=== PATIENT | male | born 1970 | race Two or more races ===

== ENCOUNTER 2024-11-22 19:15 | Inpatient (IN) | payer OTHER ==
[~2024-11-22] VITALS: Ht 172.7 cm; Wt 99.8 kg
[2024-11-22] MEDS ORDERED: CIPRO500 MG PO (20:02)
[2024-11-22] MEDS ORDERED: PANTOPRAZOLE SO40 MG PO (20:02)
[2024-11-22] MEDS ORDERED: METRONIDAZOLE500 MG PO (20:02)
[2024-11-22] MEDS ORDERED: ABATINEX680 MG PO (20:03)
[2024-11-22] MEDS ORDERED: PIPERACILLIN/TAZOBACTAM SODIUM 3.375 GM in 0.9 % SODIUM CHLORIDE 100 ML IV SCH (20:25)
[2024-11-22] MEDS ORDERED: FAMOTIDINE/PF 20 MG in 0.9 % SODIUM CHLORIDE 8 ML IV PUSH STA (20:27)
[2024-11-22] MEDS ORDERED: 0.9 % SODIUM CHLORIDE 1,000 ML IV SCH (20:30)
[2024-11-22] MEDS ORDERED: MORPHINE SULFATE 4 MG/ML VIAL IV PRN (20:30)
[2024-11-22 21:04] LABS: BASO % 0.6 % (0.1-1.2); EOS # 0.13 (0.04-0.54); EOS % 2.1 % (0.7-7.0); LYMPH # 2.15 (1.18-3.74); LYMPH % 34.8 % (19.3-53.1); MEAN PLATELET VOLUME 10.40 fl (9.4-12.4); MONO # 0.46 (0.24-0.82); MONO % 7.4 % (4.7-12.5); NEUT # 3.39 (1.56-6.13); NEUT % 54.9 % (34.0-71.1); RED CELL DISTRIBUTION WIDTH 11.9 % (11.6-14.4)
[2024-11-22 21:23] LABS: INR 1.1
[2024-11-22 21:31] LABS: ALT/SGPT 31.0 U/L (12-78); AST/SGOT 15.0 U/L (15-37); BILIRUBIN TOTAL 0.48 mg/dL (0.3-1.2); BUN CREA RATIO 11.0 (7.0-25.0); CREATININE SERUM 1.26 mg/dL (0.70-1.30); GFR 60.33; GLOBULINA 3.9 G/DL (2.4-3.5); GLUCOSE FASTING 81.0 mg/dL (65-100); OSMOLALITY SERUM 279.0 MOSM/KG (275-295)
[2024-11-22 21:52] LABS: URINE APPEARANCE Clear; URINE BILIRRUBIN Negative (NEGATIVE); URINE BLOOD Negative; URINE COLOR Dark Yellow; URINE GLUCOSE Negative (NEGATIVE); URINE KETONE Trace (NEGATIVE); URINE LEUKOCYTE Trace; URINE NITRATE Negative; URINE PROTEIN 30 (NEGATIVE); URINE UROBILINOGEN 0.2 E.U./dl
[2024-11-22 21:56] LABS: URINE BACTERIA 68.3 uL (0.0-1933); URINE EPITHELIAL CELLS 3.0 uL (0.0-38.8); URINE RBC 2.9 uL (0.0-20.8); URINE WBC 4.0 uL (0.0-23.2)
[2024-11-22 21:58] LABS: URINE CAST 0.29 uL (0.0-1.40)
[2024-11-23] MEDS ORDERED: FAMOTIDINE/PF 20 MG in 0.9 % SODIUM CHLORIDE 8 ML IV PUSH SCH ×2 (00:35→21:00)
[2024-11-23] MEDS ORDERED: CLONAZEPAM 1 MG TABLET PO SCH (00:35)
[2024-11-23] MEDS ORDERED: MORPHINE SULFATE 4 MG/ML CARTRIDGE IV PRN (00:45)
[2024-11-23] MEDS ORDERED: HYOSCYAMINE SULFATE 0.125 MG TAB.SUBL PO ONE (00:45)
[2024-11-23] MEDS ORDERED: ONDANSETRON HCL 4 MG in 0.9 % SODIUM CHLORIDE 50 ML IV PRN (00:45)
[2024-11-23] MEDS ORDERED: ACETAMINOPHEN 500 MG GEL..CAP PO PRN (00:45)
[2024-11-23] MEDS ORDERED: 0.9 % SODIUM CHLORIDE 1,000 ML IV SCH (00:45)
[2024-11-23 04:00] VITALS: BP 121/71; O2SAT 96
[2024-11-23 04:20] LABS: INR 1.09
[2024-11-23 09:35] VITALS: BP 132/75
[2024-11-23 17:25] VITALS: BP 96/57; O2SAT 98
[2024-11-24 01:22] VITALS: BP 98/60; O2SAT 97
[2024-11-24 08:55] VITALS: BP 110/72
[2024-11-24 17:47] VITALS: BP 139/74
[2024-11-24] MEDS ORDERED: CLONAZEPAM 1 MG TABLET PO SCH (21:00)
[2024-11-25 01:03] VITALS: BP 111/68
[2024-11-25 09:09] VITALS: BP 110/71
[2024-11-25] MEDS ORDERED: DIATRIZOATE MEGLUMINE, SODIUM 30 ML BOTTLE PO NR (10:45)
[2024-11-25 17:45] VITALS: BP 137/91
[2024-11-26 00:57] VITALS: BP 98/59
[2024-11-26 09:30] VITALS: BP 119/68
[2024-11-26] MEDS ORDERED: fentaNYL CITRATE 50 MCG/ML AMPUL IV PUSH ONE ×3 (17:30→21:30)
[2024-11-26] MEDS ORDERED: MIDAZOLAM HCL 2 MG/2 ML VIAL IV PUSH ONE (17:30)
[2024-11-26 22:23] VITALS: BP 132/82; O2SAT 100
[2024-11-27 02:03] VITALS: BP 121/81; O2SAT 99
[2024-11-27 08:23] VITALS: BP 108/70; O2SAT 99
[2024-11-27] MEDS ORDERED: FLUCONAZOLE IN NACL,ISO-OSM 400 MG/200 ML PIGGYBAG IV NR (14:15)
[2024-11-27 16:45] VITALS: BP 101/65
[2024-11-28 02:30] VITALS: BP 136/79; O2SAT 98
[2024-11-28 05:08] LABS: BASO % 0.6 % (0.1-1.2); EOS # 0.29 (0.04-0.54); EOS % 4.7 % (0.7-7.0); LYMPH # 2.32 (1.18-3.74); LYMPH % 37.5 % (19.3-53.1); MEAN PLATELET VOLUME 10.60 fl (9.4-12.4); MONO # 0.44 (0.24-0.82); MONO % 7.1 % (4.7-12.5); NEUT # 3.07 (1.56-6.13); NEUT % 49.8 % (34.0-71.1); RED CELL DISTRIBUTION WIDTH 11.9 % (11.6-14.4)
[2024-11-28 05:27] LABS: BUN CREA RATIO 5.0 (7.0-25.0); CREATININE SERUM 1.13 mg/dL (0.70-1.30); GFR 68.14; GLUCOSE FASTING 80.0 mg/dL (65-100); OSMOLALITY SERUM 285.0 MOSM/KG (275-295)
[2024-11-28 08:43] VITALS: BP 110/63; O2SAT 99
[2024-11-28] MEDS ORDERED: FLUCONAZOLE IN NACL,ISO-OSM 100 ML IV SCH (09:00)
[2024-11-28 16:34] VITALS: BP 134/70
[2024-11-29 00:37] VITALS: BP 131/76; O2SAT 97
[2024-11-29 07:52] VITALS: BP 110/68
[2024-11-29] MEDS ORDERED: DIATRIZOATE MEGLUMINE, SODIUM 30 ML BOTTLE PO NR (10:30)
[2024-11-29] MEDS ORDERED: PIPERACILLIN/TAZOBACTAM SODIUM 3.375 GM VIAL IV ONE ×2 (16:19→16:20)
[2024-11-29 16:54] VITALS: BP 162/86
== END 2024-11-29 21:00 | disposition home or self-care (01) | DRG 392 ==
LOC: ER 19:15 → MEDI 11-23 00:36
PROVIDERS: General Practice; ADMIT Student in an Organized Health Care Education/Training Program; ATTEND Student in an Organized Health Care Education/Training Program
PROC: BW21YZZ Computerized Tomography (CT Scan) of Abdomen and Pelvis using Other Contrast (ICD-10-PCS; principal; 2024-11-23)
PROC: BW21YZZ Computerized Tomography (CT Scan) of Abdomen and Pelvis using Other Contrast (ICD-10-PCS; 2024-11-25)
PROC: 0W9F30Z Drainage of Abdominal Wall with Drainage Device, Percutaneous Approach (ICD-10-PCS; 2024-11-26)
PROC: BW21YZZ Computerized Tomography (CT Scan) of Abdomen and Pelvis using Other Contrast (ICD-10-PCS; 2024-11-29)
DX: K57.40 Diverticulitis of both small and large intestine with perforation and abscess without bleeding (principal); Z78.9 Other specified health status